=== PATIENT | female | born 1975 | race Caucasian/White ===

== ENCOUNTER 2020-11-08 16:37 | Emergency (ER) | payer OTHER, SELFPAY ==
--- NOTE | ~2020-11-08 | XR_ITS ---
EXAMINATION: XR hip RT min 2V DATE: 11/08/2020 16:59 INDICATION: Right hip pain. TECHNIQUE: 3 views of right hip were obtained. COMPARISON: Pelvis radiograph 12/17/2012 FINDINGS: Bone alignment is normal. No fracture. Right hip joint space is normal. IMPRESSION: 1. Normal right hip. Reviewed, dictated and finalized at location A. E EPIDEMIOLOGIST IMPRESSION: 1. Normal right hip.
[2020-11-08 16:41] VITALS: BP 119/80; PULSE 73; RESP 20; TEMP 36.7; O2SAT 100
--- NOTE | 2020-11-08 16:41 | ED.GENADULT ---
HPI - General Adult General Chief complaint: Extremity Injury, Lower Stated complaint: pelvic pain Time Seen by Provider: 11/08/20 16:41 Source: patient and RN notes reviewed Mode of arrival: ambulatory Limitations: no limitations History of Present Illness HPI narrative: 45-year-old female presents to the emergency room with right posterior hip pain. Patient has a history of a pelvic dislocation after falling off a horse in 2009. States that she was playing videogames and was startled and pushed her legs against the ottoman when she felt a sharp pop in the right posterior hip, pain radiating down lateral aspect and stops at the knee. Able to walk with a normal gait. Able to sit and stand without issue. Denies any numbness or tingling in the pelvic area or legs. No loss or retention of bowel or bladder. Treatment with naproxen. Related Data Home Medications Medication Instructions Recorded Confirmed cetirizine 10 mg tablet 10 mg PO DAILY 01/26/20 11/08/20 Allergies Allergy/AdvReac Type Severity Reaction Status Date / Time bacitracin Allergy Unknown unknown Verified 11/08/20 16:42 cephalexin Allergy Unknown Rash Verified 11/08/20 16:42 Cephalosporins Allergy Unknown unknown Verified 11/08/20 16:42 latex Allergy Unknown Swelling Verified 11/08/20 16:42 Penicillins Allergy Unknown Rash Verified 11/08/20 16:42 polymyxin B Allergy Unknown unknown Verified 11/08/20 16:42 Review of Systems Review of Systems: Narrative: CONSTITUTIONAL: Denies fever, chills, or sweats. EYES: Denies visual changes, redness, or discharge. CARDIOVASCULAR: Denies chest pain, palpitations, or edema. RESPIRATORY: Denies cough or dyspnea. GASTROINTESTINAL: Denies abdominal pain, nausea, vomiting, or diarrhea. GENITOURINARY: Denies dysuria or hematuria. SKIN: Denies rash or itching. MUSCULOSKELETAL: Denies back pain, endorses right hip pain with radiation down right lateral leg. NEUROLOGIC: Denies headache, numbness, or weakness. PSYCHIATRIC: Denies anxiety or depression. All other systems reviewed are negative, except as documented in HPI. [facility] Family History Family History Father Family history of malignant neoplasm of testis Family history of elevated blood lipids Patient's father is Depression Family history of arthritis Family history of malignant neoplasm Grandparent Cerebrovascular accident Family history of malignant neoplasm of male breast, Onset Age: 82 Family history of malignant neoplasm of bone Family history of malignant neoplasm of breast, Onset Age: 60 Family history of coronary artery disease Family history of malignant neoplasm Mother Family history of mental disorder Family history of malignant neoplasm Family history of tremor Other Family history of allergic disorder Family history of cardiovascular disease Social History Social History Smoking status: Never smoker Alcohol intake: current Comments At the time of my signature, I reviewed and agree with the nursing past medical, surgical, social, and family history. There is no relevant family history pertinent to the patient complaint. Exam Narrative: Exam Narrative: GENERAL: This is a well-nourished, well-developed patient, in no apparent distress. Obese. HEAD: normocephalic, atraumatic. EYES: PERRL. Sclera clear/white. Vision is grossly intact. NECK: Neck supple, non-tender without lymphadenopathy, masses or thyromegaly. CARDIOVASCULAR: Regular rate and rhythm without murmurs, gallops, or rubs. RESPIRATORY: Clear to auscultation. Breath sounds equal bilaterally. No wheezes, rales, or rhonchi. GASTROINTESTINAL: Abdomen soft, non-tender, nondistended. Bowel sounds are active. No hepato-splenomegaly, or palpable masses. No guarding. SKIN: warm, intact with no suspicious lesions or rash, good texture and turgor. NEURO: awake, alert
== END 2020-11-08 17:30 | disposition home or self-care (01) ==
PROVIDERS: Emergency Provider Nurse Practitioner; PCP Internal Medicine
DX: M54.41 Lumbago with sciatica, right side (principal); E03.9 Hypothyroidism, unspecified
CPT/HCPCS: 73502; 99213; G0463

== ENCOUNTER 2021-01-10 09:32 | Outpatient (CLI) | payer OTHER, SELFPAY | END 2021-01-10 09:33 | disposition home or self-care (01) | LOC: ANHCOVIDVC 09:32 | PROVIDERS: PCP Internal Medicine | DX: Z23 Encounter for immunization (principal) | CPT/HCPCS: 0001A; 91300 ==

== ENCOUNTER 2021-01-31 09:30 | Outpatient (CLI) | payer OTHER, SELFPAY | END 2021-01-31 09:31 | disposition home or self-care (01) | LOC: ANHCOVIDVC 09:30 | PROVIDERS: PCP Internal Medicine | DX: Z23 Encounter for immunization (principal) | CPT/HCPCS: 0002A; 91300 ==

== ENCOUNTER → 2022-03-03 14:07 | Outpatient (CLI) | payer OTHER, SELFPAY ==
--- NOTE | ~2022-03-03 | MR_ITS ---
EXAMINATION: MR brain/brain stem wo/w con DATE: 03/03/2022 14:49 INDICATION: Vertigo. TECHNIQUE: Magnetic resonance imaging (MRI) of the brain and brainstem was performed without and with 20 mL MultiHance intravenous contrast. COMPARISON: Brain MRI 04/28/2018 FINDINGS: There is no intracranial hemorrhage, acute infarction, or abnormal intracranial mass lesion . The ventricles are normal in size. There is mild mucosal thickening in the paranasal sinuses. The o rbits are normal. The mastoid air cells are normal. IMPRESSION: 1. Normal brain. Reviewed, dictated and finalized at location B. IMPRESSION: 1. Normal brain.
[2022-03-03 14:31] LABS: Estimated Glomerular Filt Rate > 60
== END ==
PROVIDERS: PCP Family Medicine; Visit Provider Family Medicine
DX: R42 Dizziness and giddiness (principal)
CPT/HCPCS: 70553; A9577

== ENCOUNTER 2022-06-16 12:01 | Emergency (ER) | payer OTHER, SELFPAY ==
--- NOTE | 2022-06-16 12:07 | ED.NECK ---
HPI - Neck Pain/Injury General Chief Complaint: Neck Pain/Injury Stated Complaint: NECK PAIN Time Seen by Provider: 06/16/22 12:07 Source: patient and RN notes reviewed History of Present Illness HPI Narrative: Patient is a 46-year-old female who presents the urgent care with complaints of posterior neck pain radiating to the left shoulder. Patient states that she was riding her bike and noticed the deep neck pain and proceeded to go another 10 miles. Patient states that she injured her neck several years ago and horseback riding accident and has had this type of pain in the past. Patient states that she has been taking naproxen without any relief. Denies any vision change, chest pain. No other acute complaints. No acute distress noted. Patient aware of the plan of care. Some parts of this dictation were generated by voice recognition software and may contain typographical and/or grammatical inaccuracies. Related Data Home Medications Medication Instructions Recorded Confirmed naproxen 500 mg tablet,delayed See Rx Instructions .Route .COMPLEX 10/07/21 06/16/22 release Allergies Allergy/AdvReac Type Severity Reaction Status Date / Time bacitracin Allergy Unknown unknown Verified 06/16/22 12:14 cephalexin Allergy Unknown Rash Verified 06/16/22 12:14 Cephalosporins Allergy Unknown unknown Verified 06/16/22 12:14 latex Allergy Unknown Swelling Verified 06/16/22 12:14 Penicillins Allergy Unknown Rash Verified 06/16/22 12:14 polymyxin B Allergy Unknown unknown Verified 06/16/22 12:14 Review of Systems Review of Systems: CONSTITUTIONAL: Denies fever, chills, or sweats. EYES: Denies visual changes, redness, or discharge. ENT: Denies rhinorrhea, congestion, sore throat, or otalgia. Reports of posterior neck pain rating to the left shoulder CARDIOVASCULAR: Denies chest pain, palpitations, or edema. RESPIRATORY: Denies cough or dyspnea. GASTROINTESTINAL: Denies abdominal pain, nausea, vomiting, or diarrhea. GENITOURINARY: Denies dysuria or hematuria. SKIN: Denies rash or itching. MUSCULOSKELETAL: Denies back pain, joint pain, or myalgia. NEUROLOGIC: Denies headache, numbness, or weakness. All other systems reviewed are negative, except as documented in HPI. [facility] Family History Family History Father Family history of malignant neoplasm of testis Family history of elevated blood lipids Patient's father is Depression Family history of arthritis Family history of malignant neoplasm Grandparent Cerebrovascular accident Family history of malignant neoplasm of male breast, Onset Age: 82 Family history of malignant neoplasm of bone Family history of malignant neoplasm of breast, Onset Age: 60 Family history of coronary artery disease Family history of malignant neoplasm Mother Family history of mental disorder Family history of malignant neoplasm Family history of tremor Other Family history of allergic disorder Family history of cardiovascular disease Social History Social History (System 03/20/22 @ 10:59 by Danae Dean) Smoking status: Never smoker Second hand tobacco smoke exposure: Yes Alcohol intake: current Alcohol use details: social Substance use: current Substance use type: marijuana Comments At the time of my signature, I reviewed and agree with the nursing past medical, surgical, social, and family history. There is no relevant family history pertinent to the patient complaint. Exam Narrative: GENERAL: This is a well-nourished, well-developed patient, in no apparent distress. HEAD: normocephalic, atraumatic. EYES: PERRL. Sclera clear/white. Vision is grossly intact. EARS: External ears normal NOSE: External nose normal with no obvious nasal discharge, nares without redness, no rhinorrhea. THROAT: Mucous membranes moist NECK: Difficulty with head tilt and right flexion. Moderate diffuse cervical ten
[2022-06-16 12:26] VITALS: BP 132/93; PULSE 70; RESP 16; TEMP 36.6; O2SAT 100
== END 2022-06-16 12:25 | disposition home or self-care (01) ==
PROVIDERS: Emergency Provider Nurse Practitioner Family; PCP Family Medicine
DX: M54.12 Radiculopathy, cervical region (principal); E03.9 Hypothyroidism, unspecified
CPT/HCPCS: 99213; G0463

== ENCOUNTER 2022-06-24 12:17 | Outpatient (CLI) | payer OTHER, SELFPAY ==
--- NOTE | ~2022-06-24 | XR_ITS ---
EXAMINATION:XR cervical spine 4-5V DATE: 06/24/2022 12:40 INDICATION: Neck pain TECHNIQUE: AP, lateral, lateral swimmers and odontoid views of the cervical spine are provided. COMPARISON: None FINDINGS: Alignment is normal. The odontoid is intact. No fracture is identified. There is mild anter ior wedging of the C4 and C5 vertebral bodies, likely physiologic. There is mild loss of intervertebr al disc space height at C4-5 and C5-6. Prevertebral soft tissues are normal. IMPRESSION: 1. Mild cervical spondylosis without acute findings. Reviewed, dictated and finalized at location B.
== END 2022-06-24 12:18 ==
LOC: MICIMG 12:19
PROVIDERS: PCP Family Medicine; Visit Provider Nurse Practitioner Family
DX: M54.2 Cervicalgia (principal); M47.816 Spondylosis without myelopathy or radiculopathy, lumbar region
CPT/HCPCS: 72050

== ENCOUNTER 2023-02-02 21:13 | Emergency (ER) | payer OTHER, SELFPAY ==
[2023-02-02 21:32] VITALS: PULSE 116; RESP 20; TEMP 36.6; O2SAT 98
== END 2023-02-02 22:00 | disposition left against medical advice (07) ==
LOC: ANHED 02-03 01:00
PROVIDERS: PCP Family Medicine
DX: R21 Rash and other nonspecific skin eruption (principal)
CPT/HCPCS: 99199

== ENCOUNTER 2023-05-08 12:55 | Emergency (ER) | payer OTHER, SELFPAY ==
[2023-05-08 13:10] VITALS: BP 104/83; PULSE 82; RESP 16; TEMP 36.7; O2SAT 98
[2023-05-08 13:11] VITALS: BP 104/83; PULSE 82; RESP 16; TEMP 36.7; O2SAT 98
--- NOTE | 2023-05-08 13:14 | ED.ABDPAIN ---
HPI - Abdominal Pain General Chief Complaint: Abdominal Pain Stated Complaint: Abdominal pain Time Seen by Provider: 05/08/23 13:14 Source: patient Mode of arrival: ambulatory Limitations: no limitations History of Present Illness HPI narrative: 47-year-old female presents with complaint of intermittent right upper quadrant pain for the past several months. Patient states that she has been ignoring the pain because she is in between physicians. States her old physicians not taking her insurance and has appointment with a new physician. Patient states after eating ?bad food and drinking alcohol ?over 05 of May holiday right upper quadrant pain has been worse with radiation to back. States pain has been more constant. Feels nauseated but has not vomited. No changes to bowel movements. Afebrile. Denies urinary symptoms. Patient states that she does not want to go to the ER because ?it is always a 12 hour wait ?. All systems reviewed and negative except as noted above. Related Data Allergies Allergy/AdvReac Type Severity Reaction Status Date / Time bacitracin Allergy Unknown unknown Verified 05/08/23 13:10 cephalexin Allergy Unknown Rash Verified 05/08/23 13:10 Cephalosporins Allergy Unknown unknown Verified 05/08/23 13:10 latex Allergy Unknown Swelling Verified 05/08/23 13:10 Penicillins Allergy Unknown Rash Verified 05/08/23 13:10 polymyxin B Allergy Unknown unknown Verified 05/08/23 13:10 Review of Systems Review of Systems: CONSTITUTIONAL: Denies fever, chills, or sweats. EYES: Denies visual changes, redness, or discharge. ENT: Denies rhinorrhea, congestion, sore throat, or otalgia. CARDIOVASCULAR: Denies chest pain, palpitations, or edema. RESPIRATORY: Denies cough or dyspnea. GASTROINTESTINAL: Reports abdominal pain, nausea. Denies vomiting, or diarrhea. GENITOURINARY: Denies dysuria or hematuria. SKIN: Denies rash or itching. MUSCULOSKELETAL: Denies back pain, joint pain, or myalgia. NEUROLOGIC: Denies headache, numbness, or weakness. PSYCHIATRIC: Denies anxiety or depression. All other systems reviewed are negative, except as documented in HPI. [facility] Family History Family History Father Family history of malignant neoplasm of testis Family history of elevated blood lipids Patient's father is Depression Family history of arthritis Family history of malignant neoplasm Grandparent Cerebrovascular accident Family history of malignant neoplasm of male breast, Onset Age: 82 Family history of malignant neoplasm of bone Family history of malignant neoplasm of breast, Onset Age: 60 Family history of coronary artery disease Family history of malignant neoplasm Mother Family history of mental disorder Family history of malignant neoplasm Family history of tremor Other Family history of allergic disorder Family history of cardiovascular disease Social History Social History (System 03/20/22 @ 10:59 by Danae Dean) Smoking status: Never smoker Second hand tobacco smoke exposure: Yes Alcohol intake: current Alcohol use details: social Substance use: current Substance use type: marijuana Comments At time of signature, agree with nursing past medical, surgical, social and family history. There is no relevant family history pertinent to the presenting complaint. Exam Narrative: GENERAL: This is a well-nourished, well-developed patient, in no apparent distress. HEAD: normocephalic, atraumatic. EYES: PERRL. Sclera clear/white. Vision is grossly intact. EARS: External ears normal NOSE: External nose normal NECK: Neck supple, non-tender without lymphadenopathy, masses or thyromegaly. CARDIOVASCULAR: Regular rate and rhythm without murmurs, gallops, or rubs. RESPIRATORY: Clear to auscultation. Breath sounds equal bilaterally. No wheezes, rales, or rhonchi. GASTROINTESTINAL: Abdomen soft, tenderness on palpation of
== END 2023-05-08 13:25 | disposition left against medical advice (07) ==
PROVIDERS: Emergency Provider Nurse Practitioner Family
DX: R10.11 Right upper quadrant pain (principal); F12.90 Cannabis use, unspecified, uncomplicated
CPT/HCPCS: 99211; G0463

== ENCOUNTER 2023-06-30 19:03 | Emergency (ER) | payer OTHER, SELFPAY ==
--- NOTE | 2023-06-30 19:12 | ED.URI ---
HPI - URI/Sore Throat General Chief Complaint: Upper Respiratory Infection Stated Complaint: Sinus Infection;Blood vessel in eye Time Seen by Provider: 06/30/23 19:12 Source: patient Mode of arrival: ambulatory Limitations: no limitations History of Present Illness HPI Narrative: Patient is a 47-year-old female who presents with sinus pressure, sinus congestion and blood vessel rupture in left eye. Patient states she has had 3 previous sinus surgeries and has chronic sinusitis. Last treatment was in 2019. Denies any fever, chills, cough, sore throat, nausea, vomiting, diarrhea, shortness of breath. Related Data Home Medications Medication Instructions Recorded Confirmed ergocalciferol (vitamin D2) 1,250 1,250 mcg PO WEEKLY 05/27/23 06/29/23 mcg (50,000 unit) capsule (Vitamin D2) multivitamin 1 tablet PO DAILY 05/27/23 06/29/23 naproxen 500 mg tablet 500 mg PO BID 05/27/23 06/29/23 Allergies Allergy/AdvReac Type Severity Reaction Status Date / Time bacitracin Allergy Unknown unknown Verified 06/25/23 13:34 cephalexin Allergy Unknown Rash Verified 06/25/23 13:34 Cephalosporins Allergy Unknown unknown Verified 06/25/23 13:34 latex Allergy Unknown Swelling Verified 06/25/23 13:34 Penicillins Allergy Unknown Rash Verified 06/25/23 13:34 polymyxin B Allergy Unknown unknown Verified 06/25/23 13:34 Review of Systems Review of Systems: All systems reviewed & are unremarkable except as noted in HPI and below Constitutional: Constitutional: Denies body ache(s), Denies chills, Denies fatigue, Denies fever(s), Denies headache(s), Denies malaise and Denies weakness Eyes: Eyes: Denies blurry vision, Denies itchy eyes, Denies loss of vision and Reports other (Blood vessel rupture) ENT: Denies otalgia, Denies headache(s), Reports nasal congestion, Reports sinus pain, Reports sinus pressure and Denies sore throat Cardiovascular: Cardiovascular: Denies chest pain, Denies irregular heart rhythm and Denies dyspnea Respiratory: Respiratory: Denies cough and Denies dyspnea Gastrointestinal: Gastrointestinal: Denies abdominal pain, Denies diarrhea, Denies nausea and Denies vomiting Musculoskeletal: Musculoskeletal: Denies back pain, Denies myalgias and Denies arthralgias Integumentary/Breasts: Skin/Breast: Denies pruritus and Denies rash Neurologic: Denies headache(s), Denies loss of vision and Denies weakness Psychiatric: Psychiatric: Reports no additional psychiatric complaints Endocrine: Endocrine: Denies fatigue Allergic/Immunologic: Allergic/Immunologic: Denies itchy eyes PMFSH Past Medical History Medical History (Updated 06/30/23 @ 19:35 by Enid Hicks APRN) Breast cyst Surgical History Surgical History (Updated 06/25/23 @ 13:34 by Arlene Zhou MA) H/O sinus surgery History of breast lump/mass excision History of placement of ear tubes Pyloric stenosis Family History Family History Father Family history of malignant neoplasm of testis Family history of elevated blood lipids Patient's father is Depression Family history of arthritis Family history of malignant neoplasm Grandparent Cerebrovascular accident Family history of malignant neoplasm of male breast, Onset Age: 82 Family history of malignant neoplasm of bone Family history of malignant neoplasm of breast, Onset Age: 60 Family history of coronary artery disease Family history of malignant neoplasm Mother Family history of mental disorder Family history of malignant neoplasm Family history of tremor Other Family history of allergic disorder Family history of cardiovascular disease Social History Social History (Updated 05/27/23 @ 14:45 by Cierra Preciado MA) Smoking status: Never smoker Second hand tobacco smoke exposure: Yes Alcohol intake: current Drinks per week: 1 Alcohol use details: social Substance use: current [facility]
[2023-06-30 19:17] VITALS: BP 103/66; PULSE 81; RESP 16; TEMP 36.5; O2SAT 100
== END 2023-06-30 19:38 | disposition home or self-care (01) ==
PROVIDERS: Emergency Provider Nurse Practitioner Family; PCP Physician Assistant Medical
DX: J32.9 Chronic sinusitis, unspecified (principal); F12.90 Cannabis use, unspecified, uncomplicated
CPT/HCPCS: 99213; G0463

== ENCOUNTER 2023-07-30 11:23 | Outpatient (CLI) | payer OTHER, SELFPAY ==
[2023-07-30 11:58] LABS: Alanine Aminotransferase 23 U/L (6-35); Albumin Level 4.6 g/dL (3.5-5.1); Alkaline Phosphatase 67 U/L (38-126); Amylase 61 U/L (30-110); Aspartate Amino Transferase 25 U/L (14-36); Bilirubin,Total 0.7 mg/dL (0.2-1.3); Lipase 60 U/L (23-300)
== END 2023-07-30 11:24 | disposition home or self-care (01) ==
LOC: ANHSURGERY 11:31
PROVIDERS: PCP Physician Assistant Medical; Visit Provider Surgery
DX: Z01.812 Encounter for preprocedural laboratory examination (principal); K80.20 Calculus of gallbladder without cholecystitis without obstruction
CPT/HCPCS: 36415; 80076; 82150; 83690; 86850; 86900; 86901

== ENCOUNTER 2023-08-03 01:05 | Day surgery (SDC) | payer OTHER, SELFPAY ==
[2023-07-27 14:10] VITALS: BMI 38.0
--- NOTE | 2023-07-27 14:20 | PC.NURSE ---
Report to the Outpatient Waiting Room, entrance under the green pavilion located off [facility], at time _1000_ on date _[id number]_. Planned Procedure Time: _1200_. Time changes happen often and if your time is changed the preop area will call you the afternoon before. - You and your visitor will be asked to self-screen and do not enter if you have any COVID symptoms. - A mask is optional within the hospital at this time. Patients may have clear liquids (water, carbonated beverages, clear teas, apple juice) until 3 hours prior to surgery with a maximum of 20 ounces. - No food from midnight until time of surgery Take the following medications with a SIP of water the morning of surgery: ____Levothyroxine DO NOT STOP ANY OF YOUR OTHER PRESCRIPTION MEDICATIONS PRIOR TO SURGERY ?EXCEPT THE FOLLOWING Medications to discontinue per physician Multivitamin Date to take last eull___[id number] Please no make-up, nail croatian, hairspray, perfume, deodorant, or body powder the day of surgery. No jewelry (including any body piercings) or valuables the day of surgery, leave them at home. Please take a shower or bath the morning of, surgery with an Hebiclense an antibacterial soap. Wear comfortable, loose fitting clothing. - Jewelry must be removed prior to entering the operating room. Rings and piercings that are not removed may be cut off. - The hospital will not accept responsibility for valuables. - Please leave all valuables, including medications, at home the day of surgery. If you are going home after surgery, a licensed cdl team truck driver must drive you home. - NO public transportation without another adult if you receive anesthesia. - We recommend that an adult stay with you for 24 hours following discharge. - We also recommend that you do not drive, make important decision, drink alcoholic beverages, or take any drugs that were not prescribed by your health care provider for at least 24 hours after your discharge time. Follow any additional instructions given to you from your surgeon. If you or anyone in your household have experienced Covid symptoms in the past week, please notify your surgeon or the nurse liaison at the phone number below for possible testing. Telephone instructions given to __Patient___and asked if any additional questions and then verbalized understanding. Patient advised to call surgeon office or pre surgery nurse liaison [phone] if any additional questions.
[2023-08-03] VITALS (10 sets, daily range): BP systolic 107–139; BP diastolic 66–84; PULSE 56–72; RESP 12–18; TEMP 36.4–36.6; O2SAT 98–100
[2023-08-03] MEDS: LACTATED RINGERS 1,000 ML 30 ML IV CONT ×3 (11:14→13:42)
[2023-08-03] MEDS: ACETAMINOPHEN 500 MG TABLET 1000 MG PO (11:15)
[2023-08-03] MEDS: KETOROLAC 15 MG/ML VIAL (*BKC) IV PUSH (11:15)
[2023-08-03] MEDS: SCOPOLAMINE 1.5 MG PATCH TRANSDERM (11:16)
--- NOTE | 2023-08-03 11:17 | WPDANESEPPF ---
Anes - Initial Pre Proc Eval Procedure: Operation Date: 08/03/23 12:00 Proposed Procedures p Laparoscopic Cholecystectomy, Possible Open - Benjamín Pablo MD Date/Time: 08/03/23 11:17 Surgeon: Benjamín Pablo MD Pre Op Diagnosis: Post Symptomatic Cholelithiasis Patient Data Age: 47 Gender: F Height: 1.68 m Weight: 106.8 kg Allergies Allergy/AdvReac Type Severity Reaction Status Date / Time bacitracin Allergy Unknown unknown Verified 07/27/23 14:07 cephalexin Allergy Unknown Rash Verified 07/27/23 14:07 Cephalosporins Allergy Unknown unknown Verified 07/27/23 14:07 latex Allergy Unknown Swelling Verified 07/27/23 14:07 Penicillins Allergy Unknown Rash Verified 07/27/23 14:07 polymyxin B Allergy Unknown unknown Verified 07/27/23 14:07 Home Medications Medication Instructions Recorded Confirmed Type fluoxetine 40 mg capsule (Prozac) 40 mg PO DAILY #90 caps 10/07/21 07/27/23 Rx ergocalciferol (vitamin D2) 1,250 1,250 mcg PO WEEKLY 05/27/23 07/27/23 History mcg (50,000 unit) capsule (Vitamin D2) multivitamin 1 tablet PO DAILY 05/27/23 07/27/23 History naproxen 500 mg tablet 500 mg PO BID 05/27/23 07/27/23 History levothyroxine 100 mcg tablet 100 mcg PO DAILY #90 tabs 06/01/23 07/27/23 Rx cetirizine 10 mg tablet (Zyrtec) 10 mg PO HS 07/27/23 07/27/23 History Patient hx anesthesia problems: post op nausea/vomiting Family hx anesthesia problems: none Results Review: All pre-operative results and documents have been reviewed as part of the pre-operative evaluation. [facility] Past Medical History Medical History (Updated 07/01/23 @ 00:01 by Zoe Man) Breast cyst Surgical History Surgical History (Updated 06/25/23 @ 13:34 by Arlene Zhou MA) H/O sinus surgery History of breast lump/mass excision History of placement of ear tubes Pyloric stenosis Family History Family History Father Family history of malignant neoplasm of testis Family history of elevated blood lipids Patient's father is Depression Family history of arthritis Family history of malignant neoplasm Grandparent Cerebrovascular accident Family history of malignant neoplasm of male breast, Onset Age: 82 Family history of malignant neoplasm of bone Family history of malignant neoplasm of breast, Onset Age: 60 Family history of coronary artery disease Family history of malignant neoplasm Mother Family history of mental disorder Family history of malignant neoplasm Family history of tremor Other Family history of allergic disorder Family history of cardiovascular disease Social History Social History (Updated 05/27/23 @ 14:45 by Cierra Preciado MA) Smoking status: Never smoker Second hand tobacco smoke exposure: Yes Alcohol intake: current Drinks per week: 1 Alcohol use details: social Substance use: current Substance use type: marijuana Other substance usage details: Occasionally Lack of Transportation: No Lack of Food: Never True Current Housing: I Have Housing Concerned About Future Housing: No Difficulty Paying Gas/Electric Bills: No Difficulty Paying for Meds: No Currently Unemployed: No Difficulty w/ Childcare or Family Care: No Living arrangements: with family Occupation/Education: occupation Gender identity (if verbalized by the patient): Female Sexual Orientation (if Verbalized by the Patient): Straight or Heterosexual Spiritual care concerns: No Agree to blood products: Yes Anes - Eval Final PreProcedure Day of Procedure 08/03/23 11:17 Patient weight: obese Heart: regular rate and rhythm Lungs: clear to auscultation Airway: Mallampati scale class III Neurological: alert and oriented Last oral intake: >/= 8 hours ASA classification: III Emergent: no Anesthetic plan: proceed Anesthesia type and monitoring: general ETT and standard monitoring Results Review:
--- NOTE | 2023-08-03 12:11 | PM.IMHP ---
H&P: HPI History of Present Illness Date/Time: 08/03/23 12:11 Chief Complaint: RUQ abd pain, gallstones Narrative: Yelena is a 47 y/o female who presents with RUQ abdominal pain at the request of Tanya Magaña PA-C. Patient reports first experiencing symptoms about 2 months ago. She states the RUQ abdominal pain originally started after eating greasy food but now is with any food. She also has associated nausea. Her BM's are abnormal and switch from constipation to diarrhea. U/S was done on 05/08/23 and showed cholelithiasis without evidence of acute cholecystitis. CBD measured 2mm. She has a surgical history of pyloromyotomy as a child, sinus surgery, breast biopsy, and ear tube placement. 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 Review of Systems Review of Systems: The remainder of the review of systems to include constitutional, HEENT, cardiovascular, respiratory, GI, , integumentary, musculoskeletal, endocrine, immunologic, hematologic, psychiatric, and neurologic are all negative except for which is mentioned above in the HPI. [facility] Past Medical History Medical History Breast cyst Surgical History Surgical History H/O sinus surgery History of breast lump/mass excision History of placement of ear tubes Pyloric stenosis Family History Family History Father Family history of malignant neoplasm of testis Family history of elevated blood lipids Patient's father is Depression Family history of arthritis Family history of malignant neoplasm Grandparent Cerebrovascular accident Family history of malignant neoplasm of male breast, Onset Age: 82 Family history of malignant neoplasm of bone Family history of malignant neoplasm of breast, Onset Age: 60 Family history of coronary artery disease Family history of malignant neoplasm Mother Family history of mental disorder Family history of malignant neoplasm Family history of tremor Other Family history of allergic disorder Family history of cardiovascular disease Social History Social History Smoking status: Never smoker Second hand tobacco smoke exposure: Yes Alcohol intake: current Drinks per week: 1 Alcohol use details: social Substance use: current Substance use type: marijuana Other substance usage details: Occasionally Lack of Transportation: No Lack of Food: Never True Current Housing: I Have Housing Concerned About Future Housing: No Difficulty Paying Gas/Electric Bills: No Difficulty Paying for Meds: No Currently Unemployed: No Difficulty w/ Childcare or Family Care: No Living arrangements: with family Occupation/Education: occupation Gender identity (if verbalized by the patient): Female Sexual Orientation (if Verbalized by the Patient): Straight or Heterosexual Spiritual care concerns: No Agree to blood products: Yes Meds Home Medications and Allergies Home Medications Medication Instructions Recorded Confirmed Type fluoxetine 40 mg capsule (Prozac) 40 mg PO DAILY #90 caps 10/07/21 08/03/23 Rx ergocalciferol (vitamin D2) 1,250 1,250 mcg PO WEEKLY 05/27/23 08/03/23 History mcg (50,000 unit) capsule (Vitamin D2) multivitamin 1 tablet PO DAILY 05/27/23 08/03/23 History naproxen 500 mg tablet 500 mg PO BID 05/27/23 08/03/23 History levothyroxine 100 mcg tablet 100 mcg PO DAILY #90 tabs 06/01/23 08/03/23 Rx cetirizine 10 mg tablet (Zyrtec) 10 mg PO HS 07/27/23 08/03/23 History Allergies Allergy/AdvReac Type Severity Reaction Status Date / Time bacitracin Allergy Unknown unknown Verified 08/03/23 11:41 cephalexin Allergy Unknown Rash Verified 08/03/23 11:41 Cephalosporins Allergy Unknown unknown Verified 08/03/23 11:41 latex Allergy Unknown Swe
--- NOTE | 2023-08-03 12:14 | WPDHPUPDATE1 ---
History and Physical Update Update Date/Time: 08/03/23 12:14 History and Physical has been reviewed, including an updated exam of the patient. There are NO changes in the patient's condition. Risks, benefits, and alternatives have been discussed and questions answered. Patient agrees to proceed with procedure.
[2023-08-03] MEDS: CLINDAMYCIN 900 MG/D5W 50 ML 900 MG/50 ML PIGGYBACK 50 MG IVPB (12:26)
[2023-08-03] MEDS: LIDO 1%/EPINEPHRINE 1:100,000 20 ML VIAL 15 ML INFILTRATE (12:49)
[2023-08-03] MEDS: BUPivacaine HCL 0.5% PF 30 ML VIAL 15 ML INFILTRATE (12:50)
--- NOTE | 2023-08-03 13:52 | W.PM.PROC2 ---
Procedure Note - Detailed Date of Procedure 08/03/23 Pre-op Diagnosis Symptomatic Cholelithiasis Post-op Diagnosis Same Procedure Performed Laparoscopic cholecystectomy Surgeon Benjamín Pablo MD Narcotics Detective Faye GROSS Anesthesia General Indications Patient is a 47-year-old female who presented with complaints of having intermittent epigastric right upper quadrant abdominal pain with eating up. Abdominal ultrasound showed multiple gallstones but no obvious evidence of acute or chronic inflammation of the gallbladder. She presents now for elective laparoscopic cholecystectomy due to symptomatic cholelithiasis. Findings The gallbladder did not appear to be chronically or acutely inflamed. Multiple small gallstones were noted. There were few adhesions of the omentum to the edge the liver as the patient had a previous pyloromyotomy surgery will as a child. Description of Procedure After informed consent was obtained patient brought to the operating room where she was placed supine position and general endotracheal anesthesia was administered. The abdomen was then prepped and draped usual sterile fashion. A time-out was then performed correctly identifying the patient as well as the procedure to be performed. She was given perioperative IV antibiotics. Enter the abdomen the left upper quadrant utilizing a 5mm Optiview port. Once inside the abdomen insufflated to adequate pneumoperitoneum 15mmHg of CO2. There were no adhesions around the umbilicus so then I placed a 5mm periumbilical trocar port without difficulty. Laparoscopic was then switched over to the periumbilical trocar port and then looking to the upper portion of the abdomen I placed an epigastric 10mm trocar port 2 right lateral subcostal 5mm trocar ports all under direct visualization. There were some omental adhesions to the edge of the medial right lobe of the liver. Is likely due to the patient's previous pyloromyotomy as a child. I was easily able to divide these adhesions to the edge of the liver with electrocautery without any difficulty. This then allowed me to hold the gallbladder at the dome and elevate the gallbladder up over the right half liver towards the right shoulder. A 2nd grasper used to hold the gallbladder at the infundibulum. There were no adhesions of the omentum, stomach, or duodenum to the gallbladder. The gallbladder wall was normal thickness and there was no evidence of chronic inflammation. I then proceeded to strip down the visceral peritoneum and adipose tissue around the infundibular gallbladder. Identified the cystic duct and dissected this structure out circumferentially. Cystic artery was identified to have both an anterior and posterior branch and these were dissected out circumferentially as well. The posterior wall the gallbladder at the infundibulum dissected free of the liver into the critical view was obtained. At this point I then placed 2 clips proximally cystic duct and 2 clips distally high on infundibular gallbladder. The cystic duct was then divided with Endo Richard. In a similar fashion cystic artery anterior and posterior branches were clipped and divided as well. The gallbladder was then resected off the liver utilizing electrocautery. There was no spillage of any gallstones or bile. The gallbladder is placed into an Endo-Catch bag and brought out through the epigastric port site. Gallbladder and contents were sent to pathology for examination. I then irrigated out the right upper quadrant abdomen the gallbladder fossa copious sterile saline solution. I aspirated the fluid from the pelvis and right upper quadrant there is no evidence of bile leak and no bleeding. I then removed all the trocar ports under visualization all port sites appeared hemostatic. I then allowed the abdomen decompressed. Port sites in the area sterile saline solution. The 10 mm epigastric trocar port fascial defect was then closed utilizing 0 Vicryl suture placed
[2023-08-03] MEDS: ONDANSETRON INJ 4 MG/2 ML VIAL IV PUSH (14:27)
[2023-08-03] MEDS: traMADol HCL (*CRX) 50 MG TABLET PO (14:54)
[2023-08-03] MEDS: diphenhydrAMINE HCl CAP 25 MG CAPSULE PO (16:30)
== END 2023-08-03 16:55 | disposition home or self-care (01) ==
PROVIDERS: PCP Physician Assistant Medical; Visit Provider Surgery
PROC: 0FT44ZZ Resection of Gallbladder, Percutaneous Endoscopic Approach (ICD-10-PCS; CPT 47562; principal; 2023-08-03 12:00)
DX: K80.10 Calculus of gallbladder with chronic cholecystitis without obstruction (principal); E66.9 Obesity, unspecified; Z68.38 Body mass index [BMI] 38.0-38.9, adult; F12.90 Cannabis use, unspecified, uncomplicated
CPT/HCPCS: 47562; 36415; 80076; 82150; 83690; 86850; 86900; 86901; 88304; A9270; C1713; J1100; J1885; J2250; J2405; J2704; J3010; J7120

== ENCOUNTER 2024-10-05 15:28 | Outpatient (CLI) | payer OTHER, SELFPAY ==
--- NOTE | ~2024-10-05 | MM_ITS ---
EXAMINATION: MM screening nilay BI w trisha HISTORY: Screening TECHNIQUE: Craniocaudal and mediolateral oblique 3-D tomosynthesis images were obtained and synthetic 2-D images were generated. CAD analysis was submitted and interpreted. COMPARISON: Comparison to multiple prior studies sequentially, with oldest reviewed study dated 07/2014. BREAST PARENCHYMAL COMPOSITION: Not dense: There are scattered areas of fibroglandular density. FINDINGS: There is no evidence of suspicious mass, calcification, or architectural distortion to sugg est malignancy in either breast. There has been no suspicious interval change. IMPRESSION: 1. No mammographic evidence of malignancy. 2. Recommend routine screening mammography in one year. BI-RADS Category 1: Negative Reviewed, dictated and finalized at location B. ENTATIVE MAINTENANCE TECHNICIAN
== END 2024-10-05 15:29 | disposition home or self-care (01) ==
PROVIDERS: PCP Family Medicine; Visit Provider Family Medicine
DX: Z12.31 Encounter for screening mammogram for malignant neoplasm of breast (principal)
CPT/HCPCS: 77063; 77067

== ENCOUNTER 2025-02-23 16:50 | Outpatient (CLI) | payer OTHER, SELFPAY ==
--- OUTSIDE RECORDS SUMMARY | 2025-02-23 17:26 | XMS_ITS | CONTINUITY OF CARE DOCUMENT ---
Author Name leida casarez Address Unknown Organization [facility] Address [address] [place] [address] [place] [address] Phone [phone] Care Team Providers Care Crown Ironer Name Role Phone Renan BEARD, Austen Unavailable EZIO BEARD, MUSA Milton Unavailable EZIO BEARD, MUSA Milton Unavailable PROBLEMS Condition Status Date Provider Notes Hypertension active Austen Urrutia MD Shortness of breath active Austen Ferris Dizziness active Austen Urrutia MD Chest pain active Austen Urrutia MD Chronic bronchitis active Austen Urrutia MD Latex allergy active Austen Urrutia MD Sinus arrhythmia, possible active Austen Urrutia MD ENCOUNTERS Date Type Provider Location Encounter Diag nosis - In-person encounter Office Visit Austen Urrutia MD [facility] - In-person encounter Office Visit Austen Urrutia MD [facility] HypertensionShortness of breathDizzinessChest painChronic bronchitisLatex allergySinus arrhythmia, possible VITAL SIGNS Date Observation Value Provider Body Mass Index (Ratio) 37.76 kg/m2 Estefania Urrutia MD blood pressure, diastolic 78 mm[Hg] Elizabeth nkLogic blood pressure, systolic 108 mm[Hg] Gely kLogic blood pressure, diastolic 78 mm[Hg] Sa ra Cottrell blood pressure, systolic 108 mm[Hg] Radames a Cottrell oxygen saturation, oximetry 98 % Allison Cottrell respiratory rate E&M 19 /min Allison Si ms temperature site 64 Allison Cottrell weight E&M 234 [lb_av] Allison Cottrell blood pressure, cuff size regular Sa ra Cottrell height E&M 66 [in_i] Allison Cottrell weight E&M 237 [lb_av] Salvador ji Body Mass Index (Ratio) 38.25 kg/m2 Estefania Urrutia MD blood pressure, diastolic 85 mm[Hg] Elizabeth nkLogic blood pressure, systolic 134 mm[Hg] Gely kLogic blood pressure, cuff size regular Ca therine [place] blood pressure, diastolic 85 mm[Hg] Ca therine [place] blood pressure, systolic 134 mm[Hg] Cat herine Jay oxygen saturation, oximetry 92 % Tasia [place] respiratory rate E&M 14 /min Catheri ne Jay pulse rate 72 /min Tasia Jay weight E&M 237 [lb_av] Tasia Jay height E&M 66 [in_i] Tasia [place] ALLERGIES Allergy Name Onset Date Reaction Criticality Status LATEX High Criticality active CEPHASPORIN High Criticality active PENICILLIN High Criticality active HISTORY OF MEDICATION USE Medication Status Instructions Dates Provider Indications Com ments levothyroxine 88 mcg tablet active Tasia Jay naproxen 500 mg tablet,delayed release (DR/EC) active Tasia [place] fluoxetine 40 mg capsule active Tasia [place] SOCIAL HISTORY Date Observation Value Provider social history reviewed E&M revi ewed - no changes required Austen Urrutia MD smoking status Never smoker Austen alves MD social history reviewed E&M juan ewed - no changes required Austen Urrutia MD social history E&M S moking History: [address] has never smoked. Austen Urrutia MD INSURANCE PROVIDERS Payer name Policy type / Coverage type Jose Luis red constitution party ID [employer]UL[employer] insurance company [id number] ADVANCE DIRECTIVES Name Date DISCUSSED - NO DECISION MADE TREATMENT PLAN Date Name Performer [id number],C,B lood pressure control is satisfactory. 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 She did have PFTs which were normal except for a mild reduction in diffusion capacity, etiology uncertain. I will discuss with pulmonary to see whether there is something more to be done. She had a recent stress test which was normal. Her recent echocardiagram showed no signficiant valvular abnormalities, normal LV size and systolic function EF 55%. Austen Urrutia MD [id number],Gunner, Austen wu MD [id number],N, Austen wu MD [id number],C,H er phone imtiaz and smart watch report that she may have sinus arrhythmia. A holter monitor report from [facility] 03/19/22 revealed sinus rhythm. Austen Urrutia MD [id number],N, Austen wu MD [id number],C,S he has latex allergy and is sensitive to cross-reactive fruits and vegetables. Austen Urrutia MD [id number],C,S he gets effort-related SOB, dizziness, and chest pains when she is stressed or having an allergic reaction. As the etiology of these symptoms is unknown we will obtain PFTs, 6 minute walk test, ambulatory oximetry, and echocardiogram. Austen Urrutia MD Cardiology:Blood pressure contro l is satisfactory. 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 She did have PFTs which were normal except for a mild reduction in diffusion capacity, etiology uncertain. I will discuss with pulmonary to see whether there is something more to be done. She had a recent stress test which was normal. Her recent echocardiagram showed no signficiant valvular abnormalities, normal LV size and systolic function EF 55%. Austen Urrutia MD Cardiology Austen Ferris Cardiology Austen Ferris Cardiology:Her phone imtiaz and smart watch report that she may have sinus arrhythmia. A holter monitor report from [facility] 03/19/22 revealed sinus rhythm. Austen Urrutia MD Cardiology Austen Ferris Cardiology:She has l atex allergy and is sensitive to cross-reactive fruits and vegetables. Austen Urrutia MD Cardiology:She gets effort-related SOB, dizziness, and chest pains when she is stressed or having an allergic reaction. As the etiology of these symptoms is unknown we will obtain PFTs, 6 minute walk test, ambulatory oximetry, and echocardiogram. Austen Urrutia MD Date Name Ambulatory Oximetry 6 minute walk test Stress Routine DLCO - 21739 FRC - 07063 FVC - 67941 Complete Echo HISTORY OF PROCEDURES Procedure Date Procedure Name Provider Procedure Notes S tatus EKG Austen Urrutia MD complet ed 6 minute walk test Austen Urrutia MD completed Spirometry Austen Urrutia MD complet ed FVC / MVV with bronchodilator - 38222 Austen Urrutia MD completed BLOOD COUNT HEMOGLOBIN Austen Urrutia MD completed FRC - 22205 Austen Urrutia MD comple loreto SpO2 w/o 6min walk/titration Austen Urrutia MD completed SV - 29134 Austen Urrutia MD comple loreto [facility] - [id number] Austen Urrutia MD compl eted EKG Austen Urrutia MD complet ed
--- OUTSIDE RECORDS SUMMARY | 2025-02-23 17:26 | XMS_ITS | Clinical Summary ---
Author Organization [facility] Address [address] [place] [address] Care Team Providers Care Field Placement Director Name Role Phone Unavailable Primary Care Provider Unavailabl e Social History Tobacco Use Types Packs/Day Years Used Date Smoking Tobacco: Never Assessed Comments Unknown Sex and Gender Information Value Date Recorded Sex Assigned at Not on file Legal Sex Female 5:56 PM CDT Gender Identity Not on file Sexual Orientation Not on file Plan of Treatment Health Maintenance Due Date Last Done Comments Cervical Cancer Screening Pa p Smear (Age 30 to 64) Every 3 Years 1973 Colorectal Cancer Screening Colonoscopy (10 Years) 1973 Annual Physical 1976 Hepatitis C 1991 DTaP, Tdap and Td Vaccines ( 1 - Tdap) 1992 Hepatitis B Vaccines (1 of 3 - 19+ 3-dose series) 1992 Cervical Cancer Screening Pa p with HPV Testing (Age 30 to 64) Every 5 Years 2003 Cervical Cancer Screening with HPV 2003 Mammogram Screening 2013 Pneumococcal Vaccine: 50+ Ye ars (1 of 1 - PCV) 2023 Zoster Vaccines (1 of 2) 2023 COVID-19 Vaccine (1 - 2023-2 5 season) 2024 Meningococcal B Vaccine Aged Out No l onger eligible based on patient's age to complete this topic Meningococcal Vaccine Aged Out No ashleigh aure eligible based on patient's age to complete this topic RSV Immunizations Under 20 Months Aged Out No longer eligible based on patient's age to complete this topic
--- OUTSIDE RECORDS SUMMARY | 2025-02-23 17:26 | XMS_ITS | Clinical Summary ---
Author Organization [facility] Address [address] [place] [address] Care Team Providers Care Chair Pad Maker Name Role Phone Nerissa Koch MD Primary Care Provider + Allergies Active Allergy Reactions Criticality Noted Date Comments Cephalosporins Latex Anaphylaxis High 04/18/2022 Penicillins Medications EPINEPHrine 0.3 mg/0.3 mL auto-injection syringe INJECT 0.3 MG UNDER THE SKIN NEEDED FOR ALLERGIC REACTION 02/24/2022 Active ergocalciferol (VITAMIN D) 50,000 unit capsule 04/15/2022 Active FLUoxetine (PROzac) 40 mg capsule Take 1 capsule (40 mg total) by mouth daily 04/04/2022 Active levothyroxine (SYNTHROID) 88 mcg tablet Take 1 tablet (88 mcg total) by mouth daily 04/04/2022 Active ALPRAZolam (XANAX) 0.5 mg tablet Take 1 tablet (0.5 mg total) by mouth daily as needed 12/30/2022 Active gabapentin (NEURONTIN) 300 mg capsule Take 2 capsules (600 mg total) by mouth 3 (three) times a day 12/04/2022 Active naproxen (NAPROSYN) 500 mg tablet Take 1 tablet (500 mg total) by mouth 2 (two) times a day 02/02/2023 Active cyclobenzaprine (FLEXERIL) 10 mg tablet Take 1 tablet (10 mg total) by mouth 3 (three) times a day as needed for muscle spasms Active cetirizine (ZyrTEC) 10 mg tablet Take 1 tablet (10 mg total) by mouth daily Active Active Problems Problem Noted Date Diagnosed Date 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 Medical History Medical History Date Comments Hx Other Medical sinus surgery x 3; Comments: EMB 05/02/2015 - Hx Other Medical CHRISTIANA ventilation tubes as a child; Comments: EMB 05/02/2015 - Hx Other Medical milk duct tumor removed; Comments: EMB 05/02/2015 - pyloric stenosis Surgery in 1972 Shin2022 Family History Medical History Relation Name Comments Testicular cancer Father Cancer, te sticular; Breast cancer Maternal Grandmother Cancer , breast; Other Mother tongue; Breast cancer Paternal Grandmother Cancer , breast; Relation Name Status Comments Father Rheumatoid arth ritis, testicular cancer Maternal Grandmother Mother Pituitary tumor , various cancers, agammagloulinemia,latex allergy Paternal Grandmother Social History Tobacco Use Types Packs/Day Years Used Date Smoking Tobacco: Never Tobacco Cessation:Counseling Given: Not Answered Alcohol Use Standard Drinks/Week Comments No 0 (1 standard drink = 0.6 oz pur e alcohol) AUDIT-C Answer Date Recorded Q1: How often do you have a drink containing alc ohol? 2-4 times a month 04/18/2022 Average Number of Drinks Not on file 022 Q3: How often do you have si x or more drinks on one occasion? 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 Gender Identity Not on file Sexual Orientation Not on file Obstetrics History Last Filed Vital Signs Vital Sign Reading Time Taken Comments Blood Pressure 132/89 05/09/2023 3:00 AM CDT Pulse 56 05/09/2023 3:00 AM CDT Temperature 37 C (98.6 F) 05/08/2023 8:50 PM CDT Respiratory Rate 16 05/08/2023 8:50 PM CDT Oxygen Saturation 98% 05/09/2023 3:00 AM CDT Inhaled Oxygen Concentration - - Weight 104.3 kg (230 lb) 05/08/2023 3:00 PM CDT Height 167.6 cm (5' 6 ) 05/08/2023 3:00 PM CDT Body Mass Index 37.12 05/08/2023 3:00 PM CDT Plan of Treatment Health Maintenance Due Date Last Done Comments Breast Cancer Screening-Mammogram 1973 Cervical Cancer Screening 1973 Colon Cancer Screening-Colonoscopy 1973 Depression Screening 1973 Hepatitis C Screening 1973 Hepatitis B Screening 1991 Regular Well Visit/Exam 18-64 1991 Zoster Vaccine (1 of 2) 2023 Covid-19 Vaccine ( season) 2024 02/07/2022, 09/09/2021, 01/31/2021, Additional history exists Influenza Vaccine (#1) 2024 09/09/2021 DTaP/Tdap/Td Vaccine (2 - Td or Tdap) 04/07/2026 04/07/2016 Pneumococcal vaccine <65 Aged Out No longer eligible based on patient's age to complete this topic Insurance [employer] OPEN ACCESS [employer] OPEN ACCESS Care Teams Chair Pad Maker Relationship Specialty Start Date End Date Nerissa Koch MD [address] [place] [address] [address] PCP - General Family Medicine 04/24/22
--- OUTSIDE RECORDS SUMMARY | 2025-02-23 17:26 | XMS_ITS | Referral Summary ---
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
[2025-02-23 17:37] LABS: Influenza A QL RT-PCR Negative (Negative); Influenza B QL RT-PCR Negative (Negative); RSV RNA, RT-PCR Negative (Negative); SARS-CoV-2 RNA PCR Negative (Negative)
== END 2025-02-23 16:51 | disposition home or self-care (01) ==
LOC: ANHLAB 16:51
PROVIDERS: PCP Family Medicine; Visit Provider Nurse Practitioner
DX: Z20.822 Contact with and (suspected) exposure to COVID-19 (principal)
CPT/HCPCS: 87637